=== PATIENT | male | born 1995 ===

== ENCOUNTER 2023-10-06 08:14 | Inpatient (IN) | payer MEDICAID, OTHER ==
[~2023-10-06] VITALS: Ht 165.1 cm; Wt 53.5 kg
[2023-10-06 08:40] LABS: BASOPHILS % (AUTO) 0.8 % (0.0-2.0); EOSINOPHILS % (AUTO) 2.9 % (1.0-6.0); HEMATOCRIT 46.4 % (41-53); HEMOGLOBIN 15.6 g/dL (13.5-17.5); LYMPHOCYTES # (AUTO) 3.2 K/uL (1.0-4.8); LYMPHOCYTES % (AUTO) 37.5 % (22.0-44.0); MEAN CORPUSCULAR HGB CONC 33.7 G/dL (31.0-37.0); MEAN CORPUSCULAR VOLUME 92 fL (80-100); MONOCYTES # (AUTO) 0.9 K/uL (0.1-1.0); MONOCYTES % (AUTO) 10.8 % (2.0-9.0); NEUTROPHILS # (AUTO) 4.1 K/uL (1.8-7.7); PLATELET COUNT (AUTO) 297 K/uL (150-450); RED BLOOD CELL COUNT(AUTO) 5.04 MIL/uL (4.50-5.90); RED CELL DISTRIBUTION WIDTH 14.3 % (11.5-14.5); WHITE BLOOD COUNT (AUTO) 8.6 K/uL (4.5-11.0)
[2023-10-06 08:49] LABS: ANION GAP 8 mmol/L (8-16); CALCIUM, TOTAL 8.4 mg/dL (8.8-10.5); CARBON DIOXIDE 30 mmol/L (22-29); CHLORIDE 102 mmol/L (98-107); CREATININE 0.85 mg/dL (0.60-1.30); GLOMERULAR FILTR. RATE CALC > 60 mL/min (>60); GLUCOSE,RANDOM 95 mg/dL (70-110); POTASSIUM 4.1 mmol/L (3.5-5.1); SODIUM SERUM 139 mmol/L (136-145); UREA NITROGEN, BLOOD 21 mg/dL (7-18)
[2023-10-06 08:57] LABS: ALANINE AMINOTRANSFERASE 22 U/L (12-78); ALBUMIN 3.8 g/dL (3.4-5.0); ALKALINE PHOSPHATASE 83 U/L (46-116); ASPARTATE AMINOTRANSFERASE 19 U/L (15-37); BILIRUBIN,TOTAL 0.7 mg/dL (0.1-1.0); TOTAL PROTEIN, SERUM 7.7 g/dL (6.4-8.2)
[2023-10-06 09:00] LABS: ALCOHOL, BLOOD (SERUM) < 3 mg/dL (0-10)
[2023-10-06 09:50] LABS: GLUCOMETER DEV NAME(LOC) ERT.5; GLUCOSE,POINT OF CARE 74 MG/DL (70-110)
[2023-10-06 10:05] LABS: PH,URINE DRUG SCREEN 5.5 (5.0-8.0)
[2023-10-06 10:22] LABS: ALCOHOL, URINE DRUG SCREEN NEGATIVE (NEGATIVE); AMPHET/METH SCREEN,URINE NEGATIVE (NEGATIVE); BARBITURATE SCREEN, URINE NEGATIVE (NEGATIVE); BENZODIAZEPINES SCREEN,URINE NEGATIVE (NEGATIVE); CANNABINOID SCREEN,URINE NEGATIVE (NEGATIVE); COCAINE SCREEN,URINE NEGATIVE (NEGATIVE); METHADONE SCREEN, URINE NEGATIVE (NEGATIVE); OPIATE SCREEN,URINE NEGATIVE (NEGATIVE); PHENCYCLIDINE SCREEN,URINE NEGATIVE (NEGATIVE)
[2023-10-06 13:38] LABS: COVID AG,FIA SOURCE NASAL SWAB
[2023-10-06 14:09] LABS: SARS-COV2 (COVID) ANTIGEN,FIA Negative (Negative)
[2023-10-06] MEDS: SODIUM CHLORIDE 0.9% 1,000 ML IV ONE (22:41)
[2023-10-06] MEDS: OLANZapine 10 MG TABLET PO ONE (22:41)
[2023-10-06] MEDS ORDERED: ZOLPIDEM TARTRATE 10 MG TABLET PO PRN (23:00)
[2023-10-07 03:25] VITALS: BP 95/62; PULSE 95; RESP 18; TEMP 97.5
[2023-10-07] MEDS ORDERED: MAGNESIUM HYDROXIDE SUSPENSION 30 ML UDCUP PO PRN (04:45)
[2023-10-07] MEDS ORDERED: CloNIDine HCL 0.1 MG TABLET PO PRN (04:45)
[2023-10-07] MEDS ORDERED: ONDANSETRON HCL 4 MG TABLET PO PRN (04:45)
[2023-10-07] MEDS ORDERED: MAG HYDROX/ALUMINUM HYD/SIMETH ES 30 ML SUSPENSION UDCUP PO PRN (04:45)
[2023-10-07] MEDS ORDERED: DOCUSATE SODIUM 100 MG CAPSULE PO PRN (04:45)
[2023-10-07] MEDS ORDERED: NICOTINE 14 MG/24 HOUR PATCH TD PRN (04:45)
[2023-10-07] MEDS ORDERED: ACETAMINOPHEN 325 MG TABLET PO PRN (04:45)
[2023-10-07] MEDS ORDERED: ALBUTEROL SULFATE HFA 90 MCG/PUFF 8 GM INHALER IH PRN (04:45)
[2023-10-07] MEDS ORDERED: LOPERAMIDE HCL 2 MG CAPSULE PO PRN (04:45)
[2023-10-07] MEDS ORDERED: IBUPROFEN 400 MG TABLET PO PRN (04:45)
[2023-10-07] MEDS ORDERED: GuaiFENesin/D-METHORPHAN [SUGAR-FREE] 200-20MG/10 ML SYRUP UDCUP PO PRN (04:45)
[2023-10-07] MEDS ORDERED: PETROLATUM,WHITE 28 GM JELLY TP PRN (04:45)
[2023-10-07 11:56] VITALS: BP 118/61; PULSE 79; RESP 17; TEMP 97.6; O2SAT 97
[2023-10-07 22:17] VITALS: BP 98/61; PULSE 61; RESP 18; TEMP 98; O2SAT 97
[2023-10-08 08:20] LABS: APPEARANCE,URINE CLEAR (CLEAR); BILIRUBIN,URINE NEGATIVE (NEGATIVE); COLOR,URINE LIGHT YELLOW (YELLOW); GLUCOSE, URINE (UA) NEGATIVE (NEGATIVE); KETONES,URINE NEGATIVE (NEGATIVE); LEUKOCYTE ESTERASE ,URINE NEGATIVE (NEGATIVE); NITRATE,URINE NEGATIVE (NEGATIVE); OCCULT BLOOD,URINE NEGATIVE (NEGATIVE); PROTEIN,URINE NEGATIVE (NEGATIVE); SPECIFIC GRAVITIY, URINE 1.028 (1.003-1.030); UROBILINOGEN,URINE <=1.0 mg/dL (<=1.0)
[2023-10-08 08:26] LABS: ALCOHOL, URINE DRUG SCREEN NEGATIVE (NEGATIVE); AMPHET/METH SCREEN,URINE NEGATIVE (NEGATIVE); BARBITURATE SCREEN, URINE NEGATIVE (NEGATIVE); BENZODIAZEPINES SCREEN,URINE NEGATIVE (NEGATIVE); CANNABINOID SCREEN,URINE NEGATIVE (NEGATIVE); COCAINE SCREEN,URINE NEGATIVE (NEGATIVE); METHADONE SCREEN, URINE NEGATIVE (NEGATIVE); OPIATE SCREEN,URINE NEGATIVE (NEGATIVE); PHENCYCLIDINE SCREEN,URINE NEGATIVE (NEGATIVE)
[2023-10-08 08:38] LABS: CHOL/HDL RATIO 3.9 (4.2-7.3); THYROID STIMULATING HORMONE 1.44 uIU/mL (0.36-3.74)
[2023-10-08 08:39] LABS: HEMOGLOBIN A1C 5.4 % (3.8-5.6)
[2023-10-08 12:09] VITALS: BP 104/65; PULSE 69; RESP 18; TEMP 98.3; O2SAT 97
[2023-10-08] MEDS: OLANZapine 5 MG TABLET PO SCH (16:16)
[2023-10-08] MEDS ORDERED: OLANZapine 5 MG TABLET PO SCH (17:00)
[2023-10-08 20:25] VITALS: BP 96/62; PULSE 79; RESP 18; TEMP 97.3
[2023-10-09 08:49] VITALS: BP 90/55; PULSE 89; RESP 16; TEMP 97.9; O2SAT 98
[2023-10-09] MEDS: LORazepam 1 MG TABLET PO PRN (12:10)
[2023-10-09] MEDS: HALOPERIDOL 5 MG TABLET PO PRN (12:10)
[2023-10-09 20:42] VITALS: BP 95/39; PULSE 73; RESP 16; TEMP 97.4
[2023-10-10 00:32] VITALS: BP 100/60; PULSE 80; RESP 18; TEMP 98; O2SAT 99
[2023-10-10 08:25] VITALS: BP 112/66; PULSE 62; RESP 17; TEMP 98; O2SAT 98
[2023-10-10 20:16] VITALS: BP 96/65; PULSE 87; RESP 16; TEMP 98.7; O2SAT 96
[2023-10-11 09:26] VITALS: BP 117/70; PULSE 83; RESP 17; TEMP 97.9; O2SAT 95
[2023-10-11 21:08] VITALS: BP 105/65; PULSE 76; RESP 18; TEMP 98.4; O2SAT 97
[2023-10-12 08:42] VITALS: BP 97/60; PULSE 72; RESP 17; TEMP 97.8; O2SAT 96
[2023-10-13 01:00] VITALS: BP 90/55; PULSE 71; RESP 17; TEMP 97.7; O2SAT 97
[2023-10-13 15:28] VITALS: BP 97/50; PULSE 68; RESP 18; TEMP 97.5; O2SAT 98
[2023-10-13] MEDS ORDERED: NICOTINE POLACRILEX 2 MG LOZENGE PO PRN (18:30)
[2023-10-13 20:14] VITALS: BP 104/64; PULSE 67; RESP 19; TEMP 98.2; O2SAT 99
[2023-10-14 10:56] VITALS: BP 100/54; PULSE 60; RESP 18; TEMP 98.2; O2SAT 98
[2023-10-14 21:04] VITALS: BP 111/66; PULSE 87; RESP 18; TEMP 98.1; O2SAT 99
[2023-10-15 09:21] VITALS: BP 105/57; PULSE 69; RESP 17; TEMP 97.9; O2SAT 96
[2023-10-15 20:15] VITALS: BP 108/60; PULSE 70; RESP 18; TEMP 98; O2SAT 98
[2023-10-16 15:19] VITALS: BP 90/60; PULSE 78; RESP 18; TEMP 98; O2SAT 98
[2023-10-16 17:53] VITALS: BP 86/51; PULSE 79; RESP 16; TEMP 76.7; O2SAT 100
[2023-10-16 22:40] VITALS: BP 73/37; PULSE 79; RESP 17; TEMP 98.4; O2SAT 95
[2023-10-17 09:52] VITALS: BP 100/60; PULSE 83; RESP 18; TEMP 97.6; O2SAT 99
[2023-10-17 20:33] VITALS: BP 118/69; PULSE 88; RESP 17; TEMP 98; O2SAT 97
[2023-10-18 08:33] VITALS: BP 120/92; PULSE 82; RESP 18; TEMP 98.5; O2SAT 100
[2023-10-18 21:06] VITALS: BP 105/65; PULSE 84; RESP 17; TEMP 97.8
[2023-10-19 08:42] VITALS: BP 106/60; PULSE 78; RESP 17; TEMP 97.6; O2SAT 96
[2023-10-19 20:29] VITALS: BP 97/57; PULSE 103; RESP 18; TEMP 98.1; O2SAT 96
[2023-10-20 08:31] VITALS: BP 108/64; PULSE 69; RESP 18; TEMP 97.5; O2SAT 96
[2023-10-20] MEDS ORDERED: OLAN5TAB52 PO (14:07)
== END 2023-10-20 20:01 | disposition left against medical advice (07) | DRG 750 ==
LOC: EMS 08:16 → EDBD 08:16 → B2S 10-07 01:19
PROVIDERS: ADMIT Psychiatry & Neurology Child & Adolescent Psychiatry; ATTEND Psychiatry & Neurology Child & Adolescent Psychiatry
PROC: GZHZZZZ Group Psychotherapy (ICD-10-PCS; principal; 2023-10-14)
DX: F20.0 Paranoid schizophrenia (principal); E83.51 Hypocalcemia; Z20.822 Contact with and (suspected) exposure to COVID-19; F29 Unspecified psychosis not due to a substance or known physiological condition; G47.00 Insomnia, unspecified; F41.9 Anxiety disorder, unspecified; Z53.29 Procedure and treatment not carried out because of patient's decision for other reasons
CPT/HCPCS: 80053; 80061; 80307; 81003; 82962; 83036; 84443; 85025; 99285; G0480